=== PATIENT | female | born 1955 | race Caucasian/White ===

== ENCOUNTER 2018-11-09 12:52 | Emergency (ER) | payer OTHER ==
[2018-11-09 13:32] VITALS: BMI 25.3
[2018-11-09 14:34] LABS: HEMATOCRIT 32.4 % (32.4-45.2); HEMOGLOBIN 10.9 GM/dL (10.7-15.3); LYMPH % 7.4 % (8-40); MCH 33.7 pg (25.7-33.7); MCHC 33.7 g/dl (32.0-36.0); MEAN CELL VOLUME 99.8 fl (80-96); MEAN PLT VOLUME 8.2 fl (7.5-11.1); MONO % 10.1 % (3.8-10.2); NEUT % 79.5 % (42.8-82.8); PLATELET COUNT 66 K/MM3 (134-434); RBC 3.25 M/mm3 (3.60-5.2); RDW 17.3 % (11.6-15.6); WHITE BLOOD COUNT 12.6 K/mm3 (4.0-10.0)
--- NOTE | 2018-11-09 14:34 | PDOC ---
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 Pt states that last night she was told her WBC was high and kidney function was decreased and was told to come to the ED. She is endorsing SOB which is how she normally feels but states that yesterday she had some chest pain. Today she has chest tightness and increased leg swelling bilaterally. She is also endorsing sore throat. Pt states that today she does not feel well in general because her boyfriend of 7 years and his was this morning. Denies syncope, palpitations, productive cough, headache, changes in vision, abdominal pain, n/v/d, urinary symptoms, blood in stool, pain radiating to the back. PMD: Moises Pulm: Ortiz Cards: Jh ([facility]) PMH: see hpi PSH: see hpi Meds: lasix, sildenafil Allergies: Percocet (itch), Tetracycline (upset stomach) Social: denies Past History - Past Medical History Allergies/Adverse Reactions: Allergies Allergy/AdvReac Type Severity Reaction Status Date / Time acetaminophen [From Percocet] Allergy Verified 11/09/18 13:25 oxycodone [From Percocet] Allergy Verified 11/09/18 13:25 tetracycline Allergy Verified 11/09/18 13:25 Home Medications: Ambulatory Orders Budesonide/Formeterol Fumarate [SYMBICORT 160/4.5mcg -] 1 inh PO BID 11/09/18 Furosemide [Lasix] 20 mg PO BID 11/09/18 Spironolactone [Aldactone] 25 mg PO BID 11/09/18 Umeclidinium [place] [Incruse Ellipta] 62.5 mcg IH ASDIR 11/09/18 COPD: Yes - Suicide/Smoking/Psychosocial Hx Smoking History: Former smoker Have you smoked in the past 12 months: No Information on smoking cessation initiated: No Review of Systems - Review of Systems Constitutional: No: Chills, Fever, Weakness HEENTM: No: Symptoms Reported Respiratory: Yes: Cough, Shortness of Breath Cardiac (ROS): Yes: Chest Tightness. No: Chest Pain, Lightheadedness, Palpitations, Syncope ABD/GI: No: Constipated, Diarrhea, Nausea, Vomiting, Abdominal cramping : No: Symptoms Reported Musculoskeletal: No: Back Pain, Joint Pain, Neck Pain Integumentary: No: Symptoms Reported Neurological: No: Headache, Numbness, Tingling, Weakness, Dizziness *Physical Exam - Vital Signs Last Vital Signs Temp Pulse Resp BP Pulse Ox 97.8 F 111 H 24 H 111/53 L 94 L 11/09/18 13:30 11/09/18 13:30 11/09/18 13:30 11/09/18 13:30 11/09/18 13:30 - Physical Exam General Appearance: Yes: Appropriately Dressed, Thin. No: Apparent Distress HEENT: positive: EOMI, AMY, Normal ENT Inspection, Pharynx Normal Neck: positive: Trachea midline, Supple. negative: Lymphadenopathy (R), Lymphadenopathy (L) Respiratory/Chest: positive: Lungs Clear, Normal Breath Sounds. negative: Crackles, Rales, Rhonchi, Stridor, Wheezing Cardiovascular: positive: S1, S2, Tachycardia. negative: Edema, JVD, Murmur Vascular Pulses: Carotid (R): 2+, Carotid (L): 2+, Dorsalis-Pedis (R): 2+, Doralis-Pedis (L): 2+ Gastrointestinal/Abdominal: positive: Normal Bowel Sounds, Soft. negative: Tender Musculoskeletal: negative: CVA Tenderness Extremity: positive: Normal Capillary Refill, Pelvis Stable, Pedal Edema, Swelling. negative: Tender, Calf Tenderness Integumentary: positive: Normal Color, Dry, Warm Neurologic: positive: breast worker II-XII NML intact, Fully Oriented, Alert, Normal Mood/ Affect, Normal Response, Motor Strength 5/5 Moderate Sedation - Procedure Monitoring Vital Signs: Procedure Monitoring Vital Signs Temperature 97.8 F 11/09/18 13:30 Pulse Rate 111 H 11/09/18 13:30 Respiratory Rate 24 H 11/09/18 13:30 Blood Pressure 111/53 L 11/09/18 13:30 O2 Sat by Pulse Oximetry (%) 94 L 11/09/18 13:30 ED Treatment Course - LABORATORY CBC & Chemistry Diagram: 11/09/18 14:18 11/09/18 14:18 - RADIOLOGY Radiology Studies Ordered: Category Date Time Status CHEST X-RAY PORTABLE* [RAD] Stat Radiology 11/09/18 14:27 Ordered Medical Decision Making - Medical Decision Making Pt is a 63yo F with PMH of Pulmonary HTN (on home O2 2L), 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 Pt states that last night she was told her WBC was high and kidney function was decreased and was told to come to the ED. She is endorsing SOB which is how she normally feels but states that yesterday she had some chest pain. Today she has chest tightness and increased leg swelling bilaterally. She is also endorsing sore throat. Pt states that today she does not feel well in general because her boyfriend of 7 years and his was this morning. Denies syncope, palpitations, productive cough, headache, changes in vision, abdominal pain, n/v/d, urinary symptoms, blood in stool, pain radiating to the back. Vitals: tachycardia, well on 2L O2 PE: slight pitting edema in legs bilaterally. Ddx includes but not limited to ACS, PE, PTX, PNA, Dissection -cbc, cmp, trop, bnp, coags -cxr, ekg EKG shows sinus rhythm with PAC. no ingrid or depressions. normal axis. Labs significant for Laboratory Tests 11/09/18 11/09/18 11/09/18 14:18 14:18 14:18 WBC 12.6 H Plt Count 66 L D BUN 33 H Creatinine 2.3 H Troponin I 1.51 H* B-Natriuretic Peptide 3086.2 H Cannot perform CTA at this time. Pt had CT w/o contrast performed 5 days ago which shows unchanged lung nodules and signs of pulmonary htn. 11/09/18 15:[address] Roper who will speak with Dr. Peñaloza. Will see pt. Pending recommendations. Does not recommend AC at this time. Spoke to Dr. De Leon who said Cr is usually 1.5-1.8 and was 2.6 last Thursday. Said pt came in for SOB. We were going to start pt on heparin however plt 66. Will hold off for now. 11/09/18 17:[address] López, Dr. Rowe will see pt and decide if pt needs transfer or not. 11/09/18 23:[address] Rowe, pt would benefit from transfer. Will transfer to [facility] where pt gets cardiac care. Spoke to patient insurance clerk Dr. Tran who is accepting ED to ED transfer for Dr. Lane? Willl transfer. Vitals stable. Pt agrees to transfer. 11/09/18 23:44 *DC/Admit/Observation/Transfer Diagnosis at time of Disposition: Pulmonary HTN, Elevated troponin, NSTEMI (non-ST elevated myocardial infarction ) - Discharge Dispostion Disposition: TRANSFER ACUTE CARE/OTHER HOSP Condition at time of disposition: Good - Referrals Referrals: Cresencio De Leon MD [Primary Care Provider] - - Patient Instructions - Post Discharge Activity
[2018-11-09 14:53] LABS: INR 1.28 (0.83-1.09); PROTHROMBIN TIME (PATIENT) 15.1 SEC (9.7-13.0)
[2018-11-09 14:56] LABS: ACTIVATED PTT 34.3 SECONDS (25.2-36.5)
[2018-11-09 15:13] LABS: ALBUMIN 2.5 g/dl (3.4-5.0); ALK PHOS 186 U/L (45-117); ANION GAP 9 MMOL/L (8-16); BILIRUBIN,TOTAL 4.7 mg/dL (0.2-1); BLOOD UREA NITROGEN 33 mg/dL (7-18); CALCIUM 9.2 mg/dL (8.5-10.1); CHLORIDE 111 mmol/L (98-107); CO2 22 mmol/L (21-32); CREATININE 2.3 mg/dL (0.55-1.3); GLUCOSE,RANDOM 119 mg/dL (74-106); N-TERMINAL BNP 3086.2 pg/ml (5-125); POTASSIUM 3.4 mmol/L (3.5-5.1); SGOT/AST 53 U/L (15-37); SGPT/ALT 57 U/L (13-61); SODIUM 141 mmol/L (136-145); TOT PROT 5.1 g/dl (6.4-8.2)
--- NOTE | 2018-11-09 15:34 | PDOC ---
Attending Attestation - Resident Resident Name: Lisa Powell - ED Attending Attestation I have performed the following: I have examined & evaluated the patient, The case was reviewed & discussed with the resident, I agree w/resident's findings & plan, Exceptions are as noted - HPI HPI: 11/09/18 15:26 63F h/o of pulmonary HTN (on home oxygen 2L), breast ca s/p lumpectomy, colon ca s/p resection, and Wilsons disease s/p liver transplant who presents to the ED due to abnormal labs. Pt's PMD, Dr. De Leon, told her that her Cr was elevated. She was also found to have elevated WBCs. Today, Pt endorses some intermittent SOB associated w/ chest pain. She denies any symptoms at rest and states that she feels better with O2 via NC. She also endorses mildly worsened lower extremity edema. Denies abdominal pain, productive cough, syncope, palpitations, headache, N/V, urinary symptoms, or blood in stool. - Physicial Exam PE: 11/09/18 15:30 GENERAL: Awake, alert, and fully oriented, in no acute distress. HEAD: No signs of trauma EYES: PERRLA, EOMI, sclera anicteric, conjunctiva clear ENT: Auricles normal inspection, hearing grossly normal, nares patent, oropharynx clear without exudates. Moist mucosa NECK: Nontender, no stepoffs, Normal ROM, supple, no lymphadenopathy, JVD, or masses LUNGS: + mild expiratory wheezing HEART: Regular rate and rhythm, normal S1 and S2, no murmurs, rubs or gallops ABDOMEN: Soft, nontender, normoactive bowel sounds. No guarding, no rebound. No masses EXTREMITIES: +1 PE BLE, No clubbing or cyanosis. No cords, erythema, or tenderness NEUROLOGICAL: Cranial nerves II through XII intact. 5/5 strength and sensation in all extremities, Normal speech, normal gait, normal cerebellar function SKIN: Warm, Dry, normal turgor, no rashes or lesions noted. - Critical Care Time Total Critical Care Time: 60 Critical Care Statement: The care of this patient involved high complexity decision making to prevent further life threatening deterioration of the patient 's condition and/or to evaluate & treat vital organ system(s) failure or risk of failure. - Medical Decision Making 11/09/18 15:36 63 F with h/o pHTN presenting to ED for abnormal lab values, also noted to have CP + SOB. Possibly 2/2 underlying pHTN. However, PE is on ddx as pt is high risk. Consider ACS, though EKG with no ischemic changes. - Labs, trop, BNP - CXR 11/09/18 16:11 Trop elevated 1.5, BNP also elevated Will consult cardiology (Dr. Pat) Cr >2, unable to obtain CTA to r/o PE. Will discuss with cards and consider empiric anticoagulation 11/09/18 17:[address] Pat, who recommends holding on heparin for now and trending troponin. 11/09/18 18:02 After cards eval, decision made to transfer for possible interventional cards Pt consented
--- NOTE | 2018-11-09 15:37 | EKG ---
Test Reason : Blood Pressure : / mmHG Vent. Rate : 094 BPM Atrial Rate : 094 BPM P-R Int : 162 ms QRS Dur : 068 ms QT Int : 352 ms P-R-T Axes : 104 033 039 degrees QTc Int : 440 ms POOR DATA QUALITY, INTERPRETATION MAY BE ADVERSELY AFFECTED SINUS RHYTHM WITH PREMATURE ATRIAL COMPLEXES OTHERWISE NORMAL ECG WHEN COMPARED WITH ECG OF 12-NOV-2003 09:06, PREMATURE ATRIAL COMPLEXES ARE NOW PRESENT Confirmed by Aguila Mahajan MD ([id number]) on 11/09/2018 3:37:26 PM Referred By: Confirmed By:Aguila Mahajan MD
[2018-11-09 15:48] LABS: MACROCYTOSIS 1+; OVALOCYTE 1+
--- NOTE | 2018-11-09 17:05 | CON.CARD ---
Consult Consult Specialty:: cardio - History of Present Illness Chief Complaint: cp/sob History of Present Illness: [address] pitts for abnormal creatinine. recently treated with prednisone taper by dr roper for airway dz exacerbation-- last dose yest. feeling very emotional yesterday AM over of her BF recently. started feeling acutely sob. shortly later began feeling pain in chest and L scapula region. never had this type of pain before. resolved by midnight possibly earlier in evening--NO MORE CP OR BACK PAIN TODAY. sob today but much improved. has had ankle swelling of late but she is not sure if worse than baseline--non- commital on this. troponin 1.5 in ER. ECG normal. pt has michelle's dz s/p liver transplant (1983)-->cirrhosis/portal HTN/varices, sees dr dennison [facility] has severe pulm HTN--sees dr fernandes [facility] saw kamilasushila last 06/2018. on spirono, lasix, sildenafil at that time. bp 120/82 , wt 165 lbs. no JVD per his exam, no edema. other PMH: obesity breast cancer colon cancer - Smoking History Smoking history: Former smoker Have you smoked in the past 12 months: No Home Medications - Allergies Allergies/Adverse Reactions: Allergies Allergy/AdvReac Type Severity Reaction Status Date / Time acetaminophen [From Percocet] Allergy Verified 11/09/18 13:25 oxycodone [From Percocet] Allergy Verified 11/09/18 13:25 tetracycline Allergy Verified 11/09/18 13:25 - Home Medications Home Medications: Ambulatory Orders Budesonide/Formeterol Fumarate [SYMBICORT 160/4.5mcg -] 1 inh PO BID 11/09/18 Furosemide [Lasix] 20 mg PO BID 11/09/18 Spironolactone [Aldactone] 25 mg PO BID 11/09/18 Umeclidinium [place] [Incruse Ellipta] 62.5 mcg IH ASDIR 11/09/18 Family Disease History - Family Disease History Family History: Denies (no known cmp) Review of Systems - Review of Systems Constitutional: denies: Chills, Fever Eyes: denies: Eye Pain HENT: denies: Nasal Congestion Neck: denies: Stiffness Cardiovascular: denies: Palpitations Respiratory: denies: Orthopnea, PND Gastrointestinal: denies: Diarrhea, Rectal Bleeding Genitourinary: denies: Burning, Hematuria Musculoskeletal: denies: Muscle Pain Integumentary: denies: Rash Neurological: denies: Numbness, Seizure, Syncope Endocrine: denies: Excessive Sweating Hematology/Lymphatic: denies: Excessive Bleeding Vital Signs: Vital Signs Temperature 97.8 F 11/09/18 13:30 Pulse Rate 111 H 11/09/18 13:30 Respiratory Rate 24 H 11/09/18 13:30 Blood Pressure 111/53 L 11/09/18 13:30 O2 Sat by Pulse Oximetry (%) 94 L 11/09/18 13:30 Constitutional: Yes: Well Nourished, No Distress Eyes: No: Sclera Icterus HENT: No: Nasal Congestion Neck: No: Decreased ROM Respiratory: Yes: CTA Bilaterally. No: Accessory Muscle Use, Rales, Wheezes Gastrointestinal: Yes: Normal Bowel Sounds. No: Distention, Hepatomegaly, Palpable Mass, Tenderness Cardiovascular: Yes: Regular Rate and Rhythm JVD: Yes Carotid Bruit: No PMI: Non-Displaced Heart Sounds: Yes: S1, S2. No: Gallop Murmur: No: Systolic Murmur, Diastolic Murmur Musculoskeletal: Yes: Other (No kyphosis) Extremities: No: Cold, Cyanosis Edema: No Peripheral Pulses: 2+ Left Carotid, 2+ Right Carotid, 2+ Left Doralis Pedis, 2+ Right Dorsalis Pedis Integumentary: No: Jaundice Neurological: Yes: Alert, Oriented (x3) Psychiatric: No: Agitated - Other Data Labs, Other Data: CBC, BMP 11/09/18 14:18 11/09/18 14:18 INR, PTT INR 1.28 (0.83-1.09) H 11/09/18 14:18 Troponin, BNP 11/09/18 14:18 Troponin I 1.51 H* B-Natriuretic Peptide 3086.2 H Troponin, BNP 11/09/18 14:18 Troponin I 1.51 H* B-Natriuretic Peptide 3086.2 H Laboratory Tests 11/09/18 11/09/18 11/09/18 14:18 14:18 14:18 WBC 12.6 H Hgb 10.9 Plt Count 66 L D Sodium 141 Potassium 3.4 L BUN 33 H Creatinine 2.3 H AST 53 H ALT 57 Troponin I 1.51 H* B-Natriuretic Peptide 3086.2 H Assessment/Plan ECG: sinus tach with APCs. no path q's, no ST-T abn CXR reviewed: dilated RV. mild incr interstitial. no vasc redistribution, no pulm edema or effusions Echo 2017: nl LV and RV. mild TR. mod PI. severe pulm HTN. MPI 2017: no STs. normal perfusion. nl EF NSTEMI: -pt reporting cp/sob with exertion. here with initial trop 1.5, no ECG changes. -mental stress trigger-->? NSTEMI vs Takotsubo vs PE vs acute airways sx's sec to pulm HTN with RV pressure overload--troponin and hi BNP (with clear CXR) likely due to same pathophysiology -LE venous dopplers -V/Q -cirrhotic pt with varices and PLTs 60sK--will not start heparin at this time. need more info on varices severity and GIB history (d/w'd dtr--does not recall details of bleeding hx) -start aspirin 81 -start low dose BB, observe hemodynamics closely -defer statin (cirrhosis pt, at hi risk of liver decompensation) -d/w'd dr fernandes: as pt looks good and is CHEST PAIN-FREE, and hemodynamically stable will no transfer at this time. will do PE w/u as above, echo to r/o new LV wall motion abnormality, serial tropoonin sev pulm HTN sec to cirrhosis: -follows with pulm HTN specialist (Jh) and hepatology (Cj) at [facility] -normal RV function on our last echo in office 2017 -hold home lasix, spironolactone (SIA) -appears euvolemic with JVD noted likely chronic in her -RV function mildly down per dr fernandes recollection (last echo report not currently available) SIA: -creat 2.3 here -was 2.6 in office 11/03, up from baseline 1.9 in 05/11 -suspect low output/renal hypoperfusion from severe pulm HTN with RV failure -hold home diuretics for now
[2018-11-09] MEDS ORDERED: HEPARIN NA (PORCINE) 5,000 UNITS/ML 1ML VIAL IVPUSH PRN (17:10)
[2018-11-09] MEDS ORDERED: METOPROLOL TARTRATE 25 MG TABLET (FP) PO SCH (18:02)
[2018-11-09] MEDS ORDERED: ASPIRIN COATED 81 MG TABLET.EC ONE (18:09)
[2018-11-09] MEDS ORDERED: ASPIRIN 325 MG ENTERIC COATED TABLET (FP) ONE (18:10)
[2018-11-09] MEDS ORDERED: METOPROLOL TARTRATE 25 MG TABLET (FP) ONE (18:10)
[2018-11-09] MEDS ORDERED: ASPIRIN COATED 81 MG TABLET.EC PO SCH (18:15)
[2018-11-09 20:52] VITALS: BP 100/53; PULSE 93; TEMP 98.1
== END 2018-11-09 21:00 | disposition short-term general hospital (02) ==
LOC: JER 12:52
DX: I21.4 Non-ST elevation (NSTEMI) myocardial infarction (principal); I27.20 Pulmonary hypertension, unspecified; R74.8 Abnormal levels of other serum enzymes; Z85.3 Personal history of malignant neoplasm of breast; Z85.038 Personal history of other malignant neoplasm of large intestine; Z94.4 Liver transplant status
CPT/HCPCS: 36415; 71045-TC-FY; 80053; 83735; 83880; 84484; 85025; 85610; 85730; 93005; 93010; 93970-TC; 99283-25

== ENCOUNTER 2021-01-10 07:25 | Inpatient (IN) | payer OTHER ==
[2021-01-10 09:25] LABS: VENOUS BASE EXCESS -2.5 mmol/L (-2-2); VENOUS O2 SATURATION 94.4 % (70-80); VENOUS PCO2 34.9 mmHg (38-52); VENOUS PH 7.411 (7.310-7.410)
[2021-01-10 09:29] LABS: EOS % 1.6 % (0-4.5); HEMOGLOBIN 9.6 GM/dL (10.7-15.3); LYMPH % 11.8 % (8-40); MCH 33.4 pg (25.7-33.7); MCHC 34.2 g/dl (32.0-36.0); MEAN CELL VOLUME 97.6 fl (80-96); MEAN PLT VOLUME 8.5 fl (7.5-11.1); MONO % 10.7 % (3.8-10.2); NEUT % 73.9 % (42.8-82.8); PLATELET COUNT 106 K/MM3 (134-434); RBC 2.87 M/mm3 (3.60-5.2); RDW 16.4 % (11.6-15.6); WHITE BLOOD COUNT 9.1 K/mm3 (4.0-10.0)
[2021-01-10 09:37] LABS: INR 1.34 (0.83-1.09); PROTHROMBIN TIME (PATIENT) 16.4 SEC (9.7-13.0)
[2021-01-10 09:40] LABS: ACTIVATED PTT 36.3 SECONDS (25.2-36.5)
[2021-01-10 09:55] LABS: CALCIUM 9.3 mg/dL (8.5-10.1)
[2021-01-10 09:56] LABS: BLOOD UREA NITROGEN 26.6 mg/dL (7-18)
[2021-01-10 09:59] LABS: CREATININE 2.4 mg/dL (0.55-1.3)
[2021-01-10 10:02] LABS: TOT PROT 4.9 g/dl (6.4-8.2)
[2021-01-10 12:07] LABS: PH,URINE 5.5 (5.0-8.0); URINE APPEARANCE CLEAR; URINE BILIRUBIN NEGATIVE (NEGATIVE); URINE COLOR DK YELLOW; URINE GLUCOSE (UA) NEGATIVE (NEGATIVE); URINE KETONE NEGATIVE (NEGATIVE); URINE LEUK ESTERASE NEGATIVE (NEGATIVE); URINE NITRITE NEGATIVE (NEGATIVE); URINE PROTEIN NEGATIVE (NEGATIVE)
[2021-01-10] MEDS ORDERED: FUROSEMIDE 40 MG/4 ML INJECTABLE VIAL IVPUSH ONE (16:29)
[2021-01-10] MEDS ORDERED: FUROSEMIDE 40 MG/4 ML INJECTABLE VIAL ONE (16:50)
[2021-01-10] MEDS: PANTOPRAZOLE 40 MG TABLET PO SCH (23:15)
[2021-01-10] MEDS: BUDESONIDE/FORMETEROL FUMARATE 160/4.5 mcg INHALER IH SCH (23:15)
[2021-01-10] MEDS: HEPARIN NA (PORCINE) 5,000 UNITS/ML 1ML VIAL SQ SCH (23:27)
[2021-01-11 00:22] VITALS: BMI 23.1
[2021-01-11] MEDS: HEPARIN NA (PORCINE) 5,000 UNITS/ML 1ML VIAL SQ SCH ×3 (05:59→21:45)
[2021-01-11 08:56] LABS: BASO % 0.9 % (0-2.0); EOS % 1.3 % (0-4.5); HEMOGLOBIN 9.5 GM/dL (10.7-15.3); LYMPH % 9.3 % (8-40); MCH 33.1 pg (25.7-33.7); MCHC 33.9 g/dl (32.0-36.0); MEAN CELL VOLUME 97.9 fl (80-96); MEAN PLT VOLUME 8.3 fl (7.5-11.1); MONO % 7.6 % (3.8-10.2); NEUT % 80.9 % (42.8-82.8); PLATELET COUNT 93 K/MM3 (134-434); RBC 2.87 M/mm3 (3.60-5.2); RDW 16.3 % (11.6-15.6); WHITE BLOOD COUNT 7.9 K/mm3 (4.0-10.0)
[2021-01-11] MEDS: SPIRONOLACTONE 25 MG TABLET PO SCH (09:06)
[2021-01-11] MEDS: ASPIRIN COATED 81 MG TABLET.EC PO SCH (09:06)
[2021-01-11] MEDS: PANTOPRAZOLE 40 MG TABLET PO SCH ×2 (09:06→21:45)
[2021-01-11] MEDS: LACTULOSE 20 GM/30 ML UDC (FOR ORAL USE ONLY) PO SCH (09:07)
[2021-01-11] MEDS: BUDESONIDE/FORMETEROL FUMARATE 160/4.5 mcg INHALER IH SCH ×2 (09:08→21:45)
[2021-01-11 09:17] LABS: CALCIUM 8.8 mg/dL (8.5-10.1); MAGNESIUM 1.8 mg/dL (1.8-2.4)
[2021-01-11 09:18] LABS: BLOOD UREA NITROGEN 27.5 mg/dL (7-18)
[2021-01-11 09:20] LABS: CREATININE 2.4 mg/dL (0.55-1.3)
[2021-01-11 09:21] LABS: PHOSPHOROUS 2.3 mg/dL (2.5-4.9); TOT PROT 4.8 g/dl (6.4-8.2)
[2021-01-11 09:23] LABS: BILIRUBIN,TOTAL 4.8 mg/dL (0.2-1)
[2021-01-11] MEDS: SILDENAFIL CITRATE 20 MG TAB PO SCH ×2 (10:47→13:30)
[2021-01-11] MEDS: FUROSEMIDE 40 MG/4 ML INJECTABLE VIAL IVPUSH SCH ×2 (12:06→13:29)
[2021-01-11] MEDS ORDERED: PT OWN MED DRAWER 7, Y5N ONE (12:06)
[2021-01-11 19:00] LABS: BLOOD UREA NITROGEN 27.9 mg/dL (7-18); CALCIUM 8.8 mg/dL (8.5-10.1)
[2021-01-11 19:03] LABS: CREATININE 2.5 mg/dL (0.55-1.3)
[2021-01-12] MEDS: HEPARIN NA (PORCINE) 5,000 UNITS/ML 1ML VIAL SQ SCH ×3 (06:30→21:44)
[2021-01-12] MEDS: FUROSEMIDE 40 MG/4 ML INJECTABLE VIAL IVPUSH SCH (10:02)
[2021-01-12] MEDS: ASPIRIN COATED 81 MG TABLET.EC PO SCH (10:02)
[2021-01-12] MEDS: PANTOPRAZOLE 40 MG TABLET PO SCH ×2 (10:02→21:44)
[2021-01-12] MEDS: LACTULOSE 20 GM/30 ML UDC (FOR ORAL USE ONLY) PO SCH (10:02)
[2021-01-12] MEDS: SPIRONOLACTONE 25 MG TABLET PO SCH (10:02)
[2021-01-12] MEDS: SILDENAFIL CITRATE 20 MG TAB PO SCH (10:03)
[2021-01-12] MEDS: BUDESONIDE/FORMETEROL FUMARATE 160/4.5 mcg INHALER IH SCH ×2 (10:03→21:44)
[2021-01-12] MEDS ORDERED: NAPH,MB-DB/K PH,MBDB POWDER PACKET PO ONE (11:29)
[2021-01-12 11:50] LABS: BASO % 0.5 % (0-2.0); EOS % 1.1 % (0-4.5); HEMOGLOBIN 9.2 GM/dL (10.7-15.3); LYMPH % 7.4 % (8-40); MCH 33.4 pg (25.7-33.7); MEAN CELL VOLUME 98.4 fl (80-96); MEAN PLT VOLUME 7.6 fl (7.5-11.1); MONO % 10.2 % (3.8-10.2); NEUT % 80.8 % (42.8-82.8); PLATELET COUNT 105 K/MM3 (134-434); RBC 2.74 M/mm3 (3.60-5.2); RDW 16.2 % (11.6-15.6); RETICULOCYTES 2.19 % (0.5-1.5); WHITE BLOOD COUNT 13.4 K/mm3 (4.0-10.0)
[2021-01-12 12:17] LABS: PHOSPHOROUS 2.2 mg/dL (2.5-4.9)
[2021-01-12 12:42] LABS: ALBUMIN 2.1 g/dl (3.4-5.0); BLOOD UREA NITROGEN 31.1 mg/dL (7-18); CALCIUM 9.2 mg/dL (8.5-10.1)
[2021-01-12 12:43] LABS: MAGNESIUM 2.1 mg/dL (1.8-2.4)
[2021-01-12 12:46] LABS: CREATININE 2.7 mg/dL (0.55-1.3)
[2021-01-12 12:47] LABS: BILIRUBIN,TOTAL 4.6 mg/dL (0.2-1)
[2021-01-13] MEDS: HEPARIN NA (PORCINE) 5,000 UNITS/ML 1ML VIAL SQ SCH ×4 (06:14→22:00)
[2021-01-13 07:13] LABS: BASO % 0.4 % (0-2.0); EOS % 1.5 % (0-4.5); HEMATOCRIT 23.8 % (32.4-45.2); HEMOGLOBIN 7.9 GM/dL (10.7-15.3); LYMPH % 8.2 % (8-40); MCH 32.9 pg (25.7-33.7); MCHC 33.1 g/dl (32.0-36.0); MEAN CELL VOLUME 99.4 fl (80-96); MEAN PLT VOLUME 9.3 fl (7.5-11.1); MONO % 8.7 % (3.8-10.2); NEUT % 81.2 % (42.8-82.8); PLATELET COUNT 91 K/MM3 (134-434); RBC 2.39 M/mm3 (3.60-5.2); RDW 16.1 % (11.6-15.6); WHITE BLOOD COUNT 12.5 K/mm3 (4.0-10.0)
[2021-01-13 07:29] LABS: MAGNESIUM 1.9 mg/dL (1.8-2.4)
[2021-01-13 07:30] LABS: ALBUMIN 1.8 g/dl (3.4-5.0); CALCIUM 8.4 mg/dL (8.5-10.1)
[2021-01-13 07:31] LABS: BLOOD UREA NITROGEN 33.8 mg/dL (7-18)
[2021-01-13 07:32] LABS: PHOSPHOROUS 2.6 mg/dL (2.5-4.9)
[2021-01-13 07:34] LABS: CREATININE 2.6 mg/dL (0.55-1.3)
[2021-01-13 07:35] LABS: BILIRUBIN,TOTAL 3.6 mg/dL (0.2-1); TOT PROT 4.2 g/dl (6.4-8.2)
[2021-01-13] MEDS: PANTOPRAZOLE 40 MG TABLET PO SCH ×2 (11:57→21:53)
[2021-01-13] MEDS: ASPIRIN COATED 81 MG TABLET.EC PO SCH (11:57)
[2021-01-13] MEDS: LACTULOSE 20 GM/30 ML UDC (FOR ORAL USE ONLY) PO SCH (11:58)
[2021-01-13] MEDS: FUROSEMIDE 40 MG TABLET (FP) PO SCH (11:59)
[2021-01-13] MEDS: SILDENAFIL CITRATE 20 MG TAB PO SCH (12:01)
[2021-01-13] MEDS: BUDESONIDE/FORMETEROL FUMARATE 160/4.5 mcg INHALER IH SCH ×2 (12:09→21:53)
[2021-01-13] MEDS: SPIRONOLACTONE 25 MG TABLET PO SCH (12:15)
[2021-01-13] MEDS ORDERED: NAPH,MB-DB/K PH,MBDB POWDER PACKET PO ONE (13:36)
[2021-01-13 16:15] LABS: BASO % 0.4 % (0-2.0); EOS % 1.7 % (0-4.5); HEMOGLOBIN 8.1 GM/dL (10.7-15.3); MCH 33.1 pg (25.7-33.7); MCHC 33.6 g/dl (32.0-36.0); MEAN CELL VOLUME 98.4 fl (80-96); MEAN PLT VOLUME 8.9 fl (7.5-11.1); MONO % 7.3 % (3.8-10.2); NEUT % 81.6 % (42.8-82.8); PLATELET COUNT 90 K/MM3 (134-434); RBC 2.44 M/mm3 (3.60-5.2); WHITE BLOOD COUNT 10.4 K/mm3 (4.0-10.0)
[2021-01-14] MEDS: HEPARIN NA (PORCINE) 5,000 UNITS/ML 1ML VIAL SQ SCH ×3 (05:09→21:54)
[2021-01-14 07:38] LABS: BASO % 0.4 % (0-2.0); EOS % 2.9 % (0-4.5); HEMATOCRIT 24.5 % (32.4-45.2); HEMOGLOBIN 8.4 GM/dL (10.7-15.3); LYMPH % 13.3 % (8-40); MCH 33.6 pg (25.7-33.7); MCHC 34.3 g/dl (32.0-36.0); MEAN CELL VOLUME 97.9 fl (80-96); MEAN PLT VOLUME 9.4 fl (7.5-11.1); MONO % 9.9 % (3.8-10.2); NEUT % 73.5 % (42.8-82.8); PLATELET COUNT 103 K/MM3 (134-434); RDW 16.1 % (11.6-15.6); WHITE BLOOD COUNT 9.6 K/mm3 (4.0-10.0)
[2021-01-14 08:03] LABS: ALBUMIN 1.8 g/dl (3.4-5.0); BILIRUBIN,TOTAL 2.9 mg/dL (0.2-1); BLOOD UREA NITROGEN 38.3 mg/dL (7-18); CALCIUM 8.2 mg/dL (8.5-10.1); CREATININE 2.8 mg/dL (0.55-1.3); TOT PROT 4.5 g/dl (6.4-8.2)
[2021-01-14] MEDS ORDERED: PT OWN MED DRAWER 7, Y5N ONE (09:52)
[2021-01-14] MEDS: PANTOPRAZOLE 40 MG TABLET PO SCH ×2 (09:57→21:54)
[2021-01-14] MEDS: FUROSEMIDE 40 MG TABLET (FP) PO SCH (09:57)
[2021-01-14] MEDS: LACTULOSE 20 GM/30 ML UDC (FOR ORAL USE ONLY) PO SCH (09:57)
[2021-01-14] MEDS: SPIRONOLACTONE 25 MG TABLET PO SCH (09:57)
[2021-01-14] MEDS: ASPIRIN COATED 81 MG TABLET.EC PO SCH (09:57)
[2021-01-14] MEDS: BUDESONIDE/FORMETEROL FUMARATE 160/4.5 mcg INHALER IH SCH ×2 (09:58→21:54)
[2021-01-14] MEDS: SILDENAFIL CITRATE 20 MG TAB PO SCH (09:58)
[2021-01-14 10:06] LABS: PLATELET ESTIMATE DECREASED
[2021-01-14 19:06] LABS: GLIADIN ANTIBODY IGA 3 units (0-19); GLIADIN ANTIBODY IGG 5 units (0-19); TRANSGLUTAMINASE IGG 2 U/mL (0-5)
[2021-01-15] MEDS ORDERED: IBUPROFEN 600 MG TABLET (FP) PO ONE (02:00)
[2021-01-15] MEDS: HEPARIN NA (PORCINE) 5,000 UNITS/ML 1ML VIAL SQ SCH ×3 (05:47→21:26)
[2021-01-15 07:31] LABS: BASO % 1.2 % (0-2.0); EOS % 4.1 % (0-4.5); HEMATOCRIT 23.5 % (32.4-45.2); HEMOGLOBIN 8.1 GM/dL (10.7-15.3); LYMPH % 15.9 % (8-40); MCH 33.7 pg (25.7-33.7); MCHC 34.5 g/dl (32.0-36.0); MEAN CELL VOLUME 97.7 fl (80-96); MEAN PLT VOLUME 10.5 fl (7.5-11.1); MONO % 10.2 % (3.8-10.2); NEUT % 68.6 % (42.8-82.8); PLATELET COUNT 131 K/MM3 (134-434); RBC 2.41 M/mm3 (3.60-5.2); RDW 16.3 % (11.6-15.6); WHITE BLOOD COUNT 7.1 K/mm3 (4.0-10.0)
[2021-01-15 07:44] LABS: ALBUMIN 1.8 g/dl (3.4-5.0); CALCIUM 8.3 mg/dL (8.5-10.1); MAGNESIUM 2.3 mg/dL (1.8-2.4)
[2021-01-15 07:47] LABS: CREATININE 2.8 mg/dL (0.55-1.3); PHOSPHOROUS 2.6 mg/dL (2.5-4.9)
[2021-01-15 07:49] LABS: BILIRUBIN,TOTAL 2.7 mg/dL (0.2-1); TOT PROT 4.5 g/dl (6.4-8.2)
[2021-01-15] MEDS ORDERED: PT OWN MED DRAWER 7, Y5N ONE (10:25)
[2021-01-15] MEDS: FUROSEMIDE 40 MG TABLET (FP) PO SCH (10:36)
[2021-01-15] MEDS: PANTOPRAZOLE 40 MG TABLET PO SCH ×2 (10:36→21:26)
[2021-01-15] MEDS: BUDESONIDE/FORMETEROL FUMARATE 160/4.5 mcg INHALER IH SCH ×2 (10:36→21:32)
[2021-01-15] MEDS: LACTULOSE 20 GM/30 ML UDC (FOR ORAL USE ONLY) PO SCH (10:36)
[2021-01-15] MEDS: ASPIRIN COATED 81 MG TABLET.EC PO SCH (10:36)
[2021-01-15] MEDS: SPIRONOLACTONE 25 MG TABLET PO SCH (10:36)
[2021-01-15] MEDS: SILDENAFIL CITRATE 20 MG TAB PO SCH ×3 (11:05→21:31)
[2021-01-15] MEDS ORDERED: DEXTROSE 50%-WATER - 25 GM/50 ML VIAL IVPUSH ONE (13:32)
[2021-01-15] MEDS ORDERED: CALCIUM GLUCONATE 10% - 1,000 MG/10 ML VIAL IVPUSH ONE (13:45)
[2021-01-15] MEDS ORDERED: INSULIN REGULAR HUMAN 100 UNITS/ML *VIAL IVPUSH ONE (13:45)
[2021-01-15] MEDS ORDERED: CALCIUM GLUCONATE 10% - 1,000 MG/10 ML VIAL IVPB ONE (13:45)
[2021-01-15 20:18] VITALS: BP 118/50; PULSE 90; TEMP 98
[2021-01-16] MEDS ORDERED: SILDENAFIL CITRATE 20 MG TAB PO SCH (10:00)
== END 2021-01-15 23:45 | disposition home or self-care (01) | DRG 291 ==
LOC: JER 07:25 → JERBED 14:41 → J4W 21:37
PROVIDERS: ADMIT Internal Medicine; ATTEND Student in an Organized Health Care Education/Training Program
DX: I13.0 Hypertensive heart and chronic kidney disease with heart failure and stage 1 through stage 4 chronic kidney disease, or unspecified chronic kidney disease (principal); I50.33 Acute on chronic diastolic (congestive) heart failure; I47.1 Supraventricular tachycardia; Z94.4 Liver transplant status; R42 Dizziness and giddiness; I27.20 Pulmonary hypertension, unspecified; R09.02 Hypoxemia; N18.9 Chronic kidney disease, unspecified; D64.9 Anemia, unspecified; K74.60 Unspecified cirrhosis of liver; Z85.3 Personal history of malignant neoplasm of breast
CPT/HCPCS: 36415; 70450-TC; 71045-TC-FY; 71275-TC; 76775-TC; 80048; 80053; 80061; 81003; 82105; 82140; 82436; 82570; 82607; 82728; 82746; 82784; 82803; 82962; 83036; 83516; 83540; 83550; 83605; 83721; 83735; 84100; 84132; 84133; 84155; 84165; 84300; 84439; 84443; 84466; 84484; 85025; 85045; 85610; 85730; 86140; 86334; 86850; 86900; 86901; 87040; 87086; 93005; 93010; 93306-TC; 93880-TC; 93970-TC; 97116-GP; 97161-GP; 99285-25; C9803; J1644; Q9967; U0003; U0005

== ENCOUNTER 2021-11-22 16:28 | Inpatient (IN) | payer OTHER ==
[2021-11-22 19:02] LABS: INR 1.52 (0.83-1.09); PROTHROMBIN TIME (PATIENT) 17.5 SEC (9.7-13.0)
[2021-11-22 19:14] LABS: EOS % 3.5 % (0-4.5); HEMATOCRIT 24.5 % (32.4-45.2); HEMOGLOBIN 8.5 GM/dL (10.7-15.3); LYMPH % 14.4 % (8-40); MCH 34.4 pg (25.7-33.7); MCHC 34.5 g/dl (32.0-36.0); MEAN CELL VOLUME 99.7 fl (80-96); MEAN PLT VOLUME 8.2 fl (7.5-11.1); MONO % 14.5 % (3.8-10.2); NEUT % 66.6 % (42.8-82.8); PLATELET COUNT 98 10^3/uL (134-434); RBC 2.46 M/mm3 (3.60-5.2); RDW 16.8 % (11.6-15.6)
[2021-11-22 19:15] LABS: WHITE BLOOD COUNT 6.7 K/mm3 (4.0-10.0)
[2021-11-22 19:17] LABS: CALCIUM 9.1 mg/dL (8.5-10.1)
[2021-11-22 19:18] LABS: ALBUMIN 1.9 g/dl (3.4-5.0); BLOOD UREA NITROGEN 36.9 mg/dL (7-18)
[2021-11-22 19:21] LABS: CREATININE 2.9 mg/dL (0.55-1.3)
[2021-11-22 19:22] LABS: BILIRUBIN,TOTAL 7.1 mg/dL (0.2-1); TOT PROT 4.6 g/dl (6.4-8.2)
[2021-11-22 19:26] LABS: N-TERMINAL BNP 2340.1 pg/ml (5-125)
[2021-11-22] MEDS ORDERED: FUROSEMIDE 40 MG/4 ML INJECTABLE VIAL IVPUSH ONE (20:33)
[2021-11-22 20:40] LABS: EPI CELLS 17 /uL (0-25.1); HYALINE CASTS 1 /uL (0-3.1); URINE APPEARANCE CLEAR; URINE BACTERIA 421 /uL (0-1359); URINE BILIRUBIN NEGATIVE (NEGATIVE); URINE COLOR DK YELLOW; URINE GLUCOSE (UA) NEGATIVE (NEGATIVE); URINE KETONE NEGATIVE (NEGATIVE); URINE LEUK ESTERASE TRACE (NEGATIVE); URINE NITRITE NEGATIVE (NEGATIVE); URINE PROTEIN NEGATIVE (NEGATIVE); URINE RBC 5 /uL (0-23.9); URINE UROBILINOGEN 0.2 mg/dL (0.2-1.0); URINE WBC 56 /uL (0-25.8)
[2021-11-22] MEDS ORDERED: FUROSEMIDE 40 MG/4 ML INJECTABLE VIAL ONE (20:53)
[2021-11-22] MEDS ORDERED: LACTULOSE 20 GM/30 ML UDC (FOR ORAL USE ONLY) PO PRN (22:38)
[2021-11-22] MEDS ORDERED: HEPARIN NA (PORCINE) 5,000 UNITS/ML 1ML VIAL ONE (23:01)
[2021-11-22] MEDS: HEPARIN NA (PORCINE) 5,000 UNITS/ML 1ML VIAL SQ SCH (23:04)
[2021-11-23] MEDS ORDERED: BENZOCAINE/MENTH/CETYLPYRD CL 1 EACH LOZENGE MM PRN (00:02)
[2021-11-23] MEDS ORDERED: HEPARIN NA (PORCINE) 5,000 UNITS/ML 1ML VIAL ONE ×2 (06:52→13:33)
[2021-11-23] MEDS: HEPARIN NA (PORCINE) 5,000 UNITS/ML 1ML VIAL SQ SCH ×3 (06:55→22:13)
[2021-11-23] MEDS: SILDENAFIL CITRATE 20 MG TAB PO SCH ×3 (07:46→22:13)
[2021-11-23] MEDS ORDERED: FUROSEMIDE 40 MG/4 ML INJECTABLE VIAL ONE (09:45)
[2021-11-23] MEDS ORDERED: ASPIRIN COATED 81 MG TABLET.EC ONE (09:45)
[2021-11-23] MEDS ORDERED: PANTOPRAZOLE 40 MG TABLET ONE (10:09)
[2021-11-23] MEDS: ASPIRIN COATED 81 MG TABLET.EC PO SCH (10:30)
[2021-11-23] MEDS: PANTOPRAZOLE 40 MG TABLET PO SCH ×2 (10:30→22:13)
[2021-11-23] MEDS: RIFAXIMIN 550 MG TABLET PO SCH ×2 (10:30→22:13)
[2021-11-23] MEDS: FUROSEMIDE 40 MG/4 ML INJECTABLE VIAL IVPUSH SCH (10:30)
[2021-11-23] MEDS ORDERED: SPIRONOLACTONE 25 MG TABLET ONE (12:47)
[2021-11-23] MEDS: SPIRONOLACTONE 25 MG TABLET PO SCH (13:00)
[2021-11-23] MEDS ORDERED: LACTULOSE 20 GM/30 ML UDC (FOR ORAL USE ONLY) ONE (13:32)
[2021-11-23] MEDS: LACTULOSE 20 GM/30 ML UDC (FOR ORAL USE ONLY) PO SCH ×2 (15:05→22:12)
[2021-11-23 21:03] VITALS: BMI 24.3
[2021-11-24] MEDS: LACTULOSE 20 GM/30 ML UDC (FOR ORAL USE ONLY) PO SCH ×3 (06:04→21:09)
[2021-11-24] MEDS: HEPARIN NA (PORCINE) 5,000 UNITS/ML 1ML VIAL SQ SCH ×3 (06:04→21:08)
[2021-11-24] MEDS: SILDENAFIL CITRATE 20 MG TAB PO SCH ×3 (06:04→21:08)
[2021-11-24 09:06] LABS: HEMATOCRIT 21.1 % (32.4-45.2); HEMOGLOBIN 7.2 GM/dL (10.7-15.3); MCH 34.3 pg (25.7-33.7); MEAN CELL VOLUME 100.9 fl (80-96); MEAN PLT VOLUME 8.9 fl (7.5-11.1); PLATELET COUNT 88 10^3/uL (134-434); RBC 2.09 M/mm3 (3.60-5.2); RDW 16.3 % (11.6-15.6); WHITE BLOOD COUNT 3.8 K/mm3 (4.0-10.0)
[2021-11-24] MEDS: PANTOPRAZOLE 40 MG TABLET PO SCH ×2 (09:10→21:08)
[2021-11-24] MEDS: SPIRONOLACTONE 25 MG TABLET PO SCH (09:10)
[2021-11-24] MEDS: ASPIRIN COATED 81 MG TABLET.EC PO SCH (09:10)
[2021-11-24] MEDS: RIFAXIMIN 550 MG TABLET PO SCH ×2 (09:11→21:08)
[2021-11-24] MEDS: FUROSEMIDE 40 MG/4 ML INJECTABLE VIAL IVPUSH SCH (09:11)
[2021-11-24 09:21] LABS: INR 1.85 (0.83-1.09); PROTHROMBIN TIME (PATIENT) 21.4 SEC (9.7-13.0)
[2021-11-24 09:37] LABS: ALBUMIN 1.7 g/dl (3.4-5.0); BLOOD UREA NITROGEN 40.8 mg/dL (7-18); CALCIUM 9.2 mg/dL (8.5-10.1); MAGNESIUM 2.1 mg/dL (1.8-2.4)
[2021-11-24 09:40] LABS: CREATININE 2.8 mg/dL (0.55-1.3)
[2021-11-24 09:41] LABS: TOT PROT 3.9 g/dl (6.4-8.2)
[2021-11-24 09:43] LABS: BILIRUBIN,TOTAL 5.2 mg/dL (0.2-1)
[2021-11-24 10:08] LABS: SARS-CoV-2 NAA Not Detected (Not Detected)
[2021-11-24 10:16] LABS: ANISOCYTOSIS 1+; MACROCYTOSIS 1+
[2021-11-24] MEDS ORDERED: traMADol HCL 50 MG TABLET PO ONE (11:20)
[2021-11-24] MEDS: LIDOCAINE 5% TOPICAL PATCH TP SCH (11:52)
[2021-11-24] MEDS ORDERED: LORazepam 0.5 MG TABLET PO ONE (13:33)
[2021-11-24] MEDS: LORazepam 0.5 MG TABLET PO PRN (21:08)
[2021-11-24] MEDS: LIDOCAINE PATCH REMOVAL MC SCH (22:15)
[2021-11-25] MEDS: LORazepam 0.5 MG TABLET PO PRN ×2 (05:03→12:01)
[2021-11-25] MEDS: LACTULOSE 20 GM/30 ML UDC (FOR ORAL USE ONLY) PO SCH (05:03)
[2021-11-25] MEDS: SILDENAFIL CITRATE 20 MG TAB PO SCH (05:04)
[2021-11-25] MEDS: HEPARIN NA (PORCINE) 5,000 UNITS/ML 1ML VIAL SQ SCH ×2 (05:04→16:48)
[2021-11-25] MEDS: ASPIRIN COATED 81 MG TABLET.EC PO SCH (10:28)
[2021-11-25] MEDS: RIFAXIMIN 550 MG TABLET PO SCH (10:28)
[2021-11-25] MEDS: PANTOPRAZOLE 40 MG TABLET PO SCH (10:28)
[2021-11-25] MEDS: SPIRONOLACTONE 25 MG TABLET PO SCH (10:28)
[2021-11-25] MEDS: LIDOCAINE 5% TOPICAL PATCH TP SCH (10:28)
[2021-11-25] MEDS: FUROSEMIDE 40 MG/4 ML INJECTABLE VIAL IVPUSH SCH (10:30)
[2021-11-25] MEDS ORDERED: LORazepam 2 MG/ML SDV VIAL IVPUSH ONE (13:25)
[2021-11-25] MEDS ORDERED: LORazepam 0.5 MG TABLET PO PRN (13:27)
[2021-11-25] MEDS ORDERED: LORazepam 1 MG TABLET PO PRN (13:31)
[2021-11-25] MEDS: LIDOCAINE PATCH REMOVAL MC SCH (22:46)
[2021-11-26] MEDS: FUROSEMIDE 40 MG/4 ML INJECTABLE VIAL IVPUSH SCH (09:10)
[2021-11-26] MEDS: LIDOCAINE 5% TOPICAL PATCH TP SCH (09:10)
[2021-11-26] MEDS ORDERED: LORazepam 2 MG/ML SDV VIAL IVPUSH PRN (10:26)
[2021-11-26] MEDS: MORPHINE SULFATE/0.9% NACL/PF 100 MG/100 ML BAG IVPB SCH (11:39)
[2021-11-26] MEDS: LIDOCAINE PATCH REMOVAL MC SCH (21:25)
[2021-11-26] MEDS ORDERED: SCOPOLAMINE HYDROBROMIDE 1 PATCH PATCH.TD72 TD SCH (23:45)
[2021-11-27] MEDS: FUROSEMIDE 40 MG/4 ML INJECTABLE VIAL IVPUSH SCH (11:24)
[2021-11-27] MEDS: LIDOCAINE 5% TOPICAL PATCH TP SCH (11:24)
[2021-11-27 16:09] VITALS: TEMP 98
[2021-11-27] MEDS ORDERED: BENZOCAINE/MENTH/CETYLPYRD CL 1 EACH LOZENGE MM PRN (19:29)
[2021-11-27] MEDS: MORPHINE SULFATE/0.9% NACL/PF 100 MG/100 ML BAG IVPB SCH (20:54)
[2021-11-27] MEDS ORDERED: LIDOCAINE PATCH REMOVAL MC SCH (22:00)
[2021-11-27 23:35] VITALS: BP 88/56; PULSE 133
[2021-11-28] MEDS ORDERED: FUROSEMIDE 40 MG/4 ML INJECTABLE VIAL IVPUSH SCH (10:00)
[2021-11-28] MEDS ORDERED: LIDOCAINE 5% TOPICAL PATCH TP SCH (10:00)
== END 2021-11-28 06:35 | disposition expired | DRG 441 ==
LOC: JER 16:28 → JERBED 20:34 → J8W 11-23 20:21 → OBSVTOIN 11-24 17:50 → J4S 11-25 22:35
PROVIDERS: ADMIT Hospitalist; ATTEND Nurse Practitioner Acute Care
DX: K72.00 Acute and subacute hepatic failure without coma (principal); J96.21 Acute and chronic respiratory failure with hypoxia; I50.33 Acute on chronic diastolic (congestive) heart failure; D61.818 Other pancytopenia; R18.8 Other ascites; I85.00 Esophageal varices without bleeding; N39.0 Urinary tract infection, site not specified; I13.0 Hypertensive heart and chronic kidney disease with heart failure and stage 1 through stage 4 chronic kidney disease, or unspecified chronic kidney disease; Z94.4 Liver transplant status; E83.01 Wilson's disease; N18.9 Chronic kidney disease, unspecified; R50.9 Fever, unspecified; D73.1 Hypersplenism; D64.9 Anemia, unspecified; R00.0 Tachycardia, unspecified; D86.9 Sarcoidosis, unspecified; I27.20 Pulmonary hypertension, unspecified; Z85.3 Personal history of malignant neoplasm of breast; Z85.038 Personal history of other malignant neoplasm of large intestine; Z96.653 Presence of artificial knee joint, bilateral; Z86.73 Personal history of transient ischemic attack (TIA), and cerebral infarction without residual deficits; Z99.81 Dependence on supplemental oxygen; Z51.5 Encounter for palliative care; Z78.9 Other specified health status; Z66 Do not resuscitate
CPT/HCPCS: 36415; 71045-TC-FY; 80053; 81003; 82140; 83735; 83880; 84484; 85025; 85610; 85730; 87086; 87186; 93005; 93010; 93971-TC; 99285-25; C9803-CS; G0378; J1644; U0003; U0005